=== PATIENT | female | born 1940 | race Caucasian/White ===

== ENCOUNTER 2017-05-26 07:24 | Outpatient (CLI) | payer MEDICARE, BC ==
[2017-05-26] MEDS ORDERED: Iopamidol 370 76% 100 ML VIAL ONE (09:00)
--- NOTE | 2017-05-26 10:09 | CT ---
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 COMPARISON: None. CONTRAST: 100 cc of Isovue 370. FINDINGS: CHEST: There are enlarged axillary lymph nodes. One of the largest is seen measuring 1.3 cm within the lef t axilla on image 13 of series 3. There is a mildly prominent pretracheal lymph node measuring 7 mm. No pathologically enlarged media stinal or hilar lymph node is evident. There is a 4.5 mm pulmonary nodule within the left lower lobe. There is mild bibasilar atelectasis. ABDOMEN: There are numerous enlarged lymph nodes within the upper abdomen. One of the largest is seen within the periportal region measuring 1.4 cm on image 53 of series 3. Enlarged lymph nodes are seen with in the gastrohepatic, peripancreatic, periportal, portocaval, and retroperitoneal locations. The spleen is mildly enlarged measuring up to 13 cm. There is a small subcapsular fluid collection seen along the lateral border of the spleen, which is nonspecific. There are small renal hypodensities bilaterally likely reflective of cysts. No hydronephrosis is ev ident. There is a 2.6 mm stone within the upper pole of the right kidney. The liver, pancreas, and adrenal glands are normal-appearing. There is a small splenule anterior to the inferior pole of the spleen. PELVIS: There are numerous enlarged lymph nodes within the pelvis along the iliac chains. One of the larges t adjacent to the left common iliac vessel measures 2.4 cm. There is an enlarged lymph node seen ad jacent to the left external iliac measuring 2.6 cm on image 99 of series 3. There is a fibroid uter us. The bladder, rectum, and perirectal soft tissues are unremarkable. There is a moderate amount of retained stool within the colon. OSSEOUS STRUCTURES: There is postsurgical change consistent with an L4-L5 posterior lateral interbody fusion. There is scattered degenerative osteoarthritic change. There is some instrumentation involving the lower cer vical spine that projects beyond the field of view. There is levoscoliosis of the lumbar spine. IMPRESSION: 1. Enlarged lymph nodes seen within the axillary region, upper abdomen, retroperitoneum, and pelvis consistent with patient's history of chronic lymphocytic leukemia. 2. Splenomegaly. There is a small subcapsular fluid collection seen along the lateral margin of th e spleen which is nonspecific and may reflect a small subcapsular splenic effusion or remote subcaps ular hematoma. No hyperdense fluid collection or active extravasation is grossly evident. 3. Renal hypodensity too small to characterize but statistically likely reflective of cyst. 4. Right nephrolithiasis. 5. A 4.5 mm left lower lobe pulmonary nodule. 6. Fibroid uterus. 7. Postsurgical change of the lower cervical spine and lumbar spine. POS: [facility]
== END 2017-05-26 07:25 | disposition home or self-care (01) ==
LOC: SCSCT 07:24
PROVIDERS: ATTEND Internal Medicine Hematology & Oncology
DX: C91.10 Chronic lymphocytic leukemia of B-cell type not having achieved remission (principal); N20.0 Calculus of kidney; D25.9 Leiomyoma of uterus, unspecified; R91.1 Solitary pulmonary nodule; R16.1 Splenomegaly, not elsewhere classified; Z98.890 Other specified postprocedural states
CPT/HCPCS: 71260; 74177

== ENCOUNTER 2017-09-26 16:53 | Emergency (ER) | payer MEDICARE, BC ==
--- NOTE | 2017-09-26 17:56 | CT ---
CT OF BRAIN PERFORMED WITHOUT CONTRAST ENHANCEMENT: 09/26/17 HISTORY: Fall. Generalized ventricular and sulcal prominence. There is no signs of intracerebral hemorrhage or extra-axial fluid collections. Right frontal scalp hematoma is noted. The underlying sinuses are jake ar and there is no signs of fracture. IMPRESSION: No acute intracranial abnormalities. POS: [facility]
== END 2017-09-26 18:04 | disposition home or self-care (01) ==
LOC: SCSER 16:53
DX: S09.90XA Unspecified injury of head, initial encounter (principal); I10 Essential (primary) hypertension; M19.90 Unspecified osteoarthritis, unspecified site; Z79.899 Other long term (current) drug therapy; W01.10XA Fall on same level from slipping, tripping and stumbling with subsequent striking against unspecified object, initial encounter
CPT/HCPCS: 70450

== ENCOUNTER 2018-05-20 11:13 | Outpatient (CLI) | payer MEDICARE, BC | END 2018-05-20 11:14 | disposition home or self-care (01) | LOC: BICMAMMO 11:13 | PROVIDERS: ATTEND Internal Medicine | DX: Z12.31 Encounter for screening mammogram for malignant neoplasm of breast (principal) | CPT/HCPCS: 77063; 77067 ==

== ENCOUNTER 2019-01-26 07:27 | Outpatient (CLI) | payer MEDICARE, BC ==
--- NOTE | 2019-01-26 08:39 | CT ---
EXAM: CT ABDOMEN AND PELVIS HISTORY: Chronic lymphocytic B-cell lymphoma. COMPARISON: 03/19/2016. Procedure: Multiple contiguous axial images were obtained and a CT of the abdomen and pelvis with IV contrast. C oronal reformats were performed. FINDINGS: Lower Chest: Consolidation in the medial segment of the middle lobe may be due to atelectasis. Vessels: Normal caliber aorta. No periaortic fat stranding. Heart: Normal size. No significant pericardial fluid. Abdomen: Portal vein:Patent Gallbladder: No calcified gallstones. Normal caliber wall. Liver: within normal limits. Pancreas: within normal limits. Spleen: within normal limits. Small amount of perisplenic fluid. Adrenals: within normal limits. Kidneys: within normal limits. Peritoneum: No ascites or free air, no fluid collection. Bowel: Normal caliber. Mesentery and Retroperitoneum: Enlarged gastrohepatic lymph nodes measuring 0.6 x 1.2 and 1.5 x 0.8 c m. Enlarged periportal lymph node measuring 1.3 x 2.0 cm. Enlarged complex necrotic periportal lymph node measuring 1.6 x 1.1 cm. Multiple enlarged periaortic and aortocaval lymph nodes. Enlarged precaval lymph node measures 1.7 x 1.4 cm. Enlarged left periaortic lymph node measures 2.5 x 2.7 cm. Previously, right external iliac lymph nodes measure 0.9 x 2.3 and 3.6 x 1.7 cm. Left external il iac lymph nodes previously measured 3.5 x 1.2 and 2.4 x 4.7 cm. Largest retroperitoneal lymph node was left periaortic in location, measuring 1.9 x 2.7 cm. Abdominal Wall: within normal limits. Pelvis: Reproductive Organs: Grossly unremarkable adnexal structures. Calcification in the uterine myometrium , likely due to a calcified leiomyoma. Pelvis: Enlarged right external iliac lymph nodes measuring 2.5 x 4.4 cm and 2.0 x 2.0 cm. Enlarged l eft external iliac lymph nodes measuring 3.7 x 1.8 cm and 3.1 x 1.4 cm. Bladder: within normal limits. Bones: within normal limits. IMPRESSION: Extensive lymphadenopathy involving the abdomen and pelvis as described above. The degree of lymphade nopathy has significantly progressed Transcribed Date/Time: 01/26/2019 9:30 AM
[2019-01-26] MEDS ORDERED: Iopamidol 370 76% 100 ML VIAL ONE (09:11)
== END 2019-01-26 07:28 | disposition home or self-care (01) ==
LOC: SCSCT 07:27
PROVIDERS: ATTEND Internal Medicine Hematology & Oncology
DX: C91.10 Chronic lymphocytic leukemia of B-cell type not having achieved remission (principal); R59.0 Localized enlarged lymph nodes
CPT/HCPCS: 74177; 82565

== ENCOUNTER 2019-05-27 09:14 | Outpatient (CLI) | payer MEDICARE, BC ==
--- NOTE | 2019-05-27 13:54 | MMO ---
Bilateral MAMMO Bilat Screen [facility]. CLINICAL HISTORY: Patient is 79 years old and is seen for screening. The patient has the following family history of breast cancer: aunt. The patient has a history of lymphoma at age 75. VIEWS: The views performed were: bilateral craniocaudal with tomosynthesis and bilateral mediolateral oblique with tomosynthesis. FILMS COMPARED: The present examination has been compared to prior imaging studies performed at [facility] on 05/15/2015, 05/16/2016, 05/19/2017 and 05/20/2018. This study has been interpreted with the assistance of computer-aided detection. MAMMOGRAM FINDINGS: There are scattered fibroglandular densities. Bilateral axillary lymphadenopathy consistent with lymphoma is stable. There are no suspicious masses, suspicious calcifications, or new areas of architectural distortion. IMPRESSION: THERE IS NO MAMMOGRAPHIC EVIDENCE OF MALIGNANCY. A ROUTINE FOLLOW-UP MAMMOGRAM IN 1 YEAR IS RECOMMENDED. THE RESULTS OF THIS EXAM WERE SENT TO THE PATIENT. ACR BI-RADS Category 2 - Benign finding MAMMOGRAPHY NOTE: 1. A negative mammogram report should not delay a biopsy if a dominant of clinically suspicious mass is present. 2. Approximately 10% to 15% of breast cancers are not detected by mammography. 3. Adenosis and dense breasts may obscure an underlying neoplasm. Reported by: STEVE PRUITT MD Electonically Signed: [id number]
== END 2019-05-27 09:15 | disposition home or self-care (01) ==
LOC: BICMAMMO 09:14
PROVIDERS: ATTEND Internal Medicine
DX: Z12.31 Encounter for screening mammogram for malignant neoplasm of breast (principal); Z80.3 Family history of malignant neoplasm of breast; Z85.72 Personal history of non-Hodgkin lymphomas
CPT/HCPCS: 77063; 77067

== ENCOUNTER 2019-07-23 07:31 | Outpatient (CLI) | payer MEDICARE, BC ==
--- NOTE | 2019-07-23 10:54 | CT ---
CT ABDOMEN AND PELVIS WITH ORAL AND IV CONTRAST: HISTORY: Right lower quadrant pain. Chronic lymphocytic leukemia of B cell type, not having achieved remission . Small cell B cell lymphoma, intra-abdominal lymph nodes. COMPARISON: 01/26/2019 FINDINGS: Consolidation/ atelectatic change in the medial segment of the right middle lobe is again seen. No pl eural effusions are seen. Mild splenomegaly with a small amount of perisplenic fluid is again seen. T he liver, pancreas and adrenal glands are unremarkable. There is a tiny nonobstructing right renal ca lculus. Small low densities in the kidneys are likely cysts. Abdominal, pelvic and inguinofemoral lymphadenopathy is essentially stable. No free air or ascites is seen. The small bowel loops are not abnormally dilated. Calcified uterine fibroid is again seen. The re are postop changes in the lower lumbar spine. An abnormal appendix is not seen. IMPRESSION: 1. No significant interval change since 01/26/2019. POS: [facility]
== END 2019-07-23 07:32 | disposition home or self-care (01) ==
LOC: SCSCT 07:31
PROVIDERS: ATTEND Internal Medicine Hematology & Oncology
DX: C91.10 Chronic lymphocytic leukemia of B-cell type not having achieved remission (principal)
CPT/HCPCS: 74177

== ENCOUNTER → 2020-01-25 | Outpatient (CLI) | payer MEDICARE, OTHER | LOC: LAB 14:40 | PROVIDERS: ATTEND Specialist | DX: Z01.812 Encounter for preprocedural laboratory examination (principal); Z11.59 Encounter for screening for other viral diseases | CPT/HCPCS: 87635; U0003 ==

== ENCOUNTER 2020-01-27 07:35 | Outpatient (CLI) | payer MEDICARE, BC ==
--- NOTE | 2020-01-27 08:56 | RAD ---
Esophagram HISTORY: Dysphagia. FINDINGS: Air contrast and single column barium evaluation shows a very small sliding hiatal hernia. A small amount of gastroesophageal reflux was demonstrated at fluoroscopy. No focal esophageal lesions. A 12 mm barium tablet traversed the esophagus without holdup. There was marked decrease in primary and secondary peristalsis. Prominent non-propulsive, tertiary ty pe contractions are seen present throughout the esophagus. IMPRESSION : Small sliding hiatal hernia with gastroesophageal reflux. Severe presbyesophagus. No evidence of obstruction.
== END 2020-01-27 07:36 | disposition home or self-care (01) ==
LOC: RAD 07:35
PROVIDERS: ATTEND Specialist
DX: R13.10 Dysphagia, unspecified (principal); K44.9 Diaphragmatic hernia without obstruction or gangrene; K21.9 Gastro-esophageal reflux disease without esophagitis; K22.8 Other specified diseases of esophagus
CPT/HCPCS: 74220

== ENCOUNTER 2020-07-24 13:03 | Outpatient (CLI) | payer MEDICARE, BC ==
--- NOTE | 2020-07-24 13:55 | MMO ---
Bilateral MAMMO Bilat Screen [facility]. CLINICAL HISTORY: Patient is 80 years old and is seen for screening. The patient has the following family history of breast cancer: maternal aunt, malignant (generic). The patient has a history of lymphoma at age 75. VIEWS: The views performed were: bilateral craniocaudal with tomosynthesis and bilateral mediolateral oblique with tomosynthesis. FILMS COMPARED: The present examination has been compared to prior imaging studies performed at [facility] on 05/16/2016, 05/19/2017, 05/20/2018 and 05/27/2019. This study has been interpreted with the assistance of computer-aided detection. MAMMOGRAM FINDINGS: There are scattered fibroglandular densities. Bilateral axillary lymphadenopathy consistent with lymphoma is stable. Benign calcifications are noted bilaterally. There are no suspicious masses, suspicious calcifications, or new areas of architectural distortion. IMPRESSION: THERE IS NO MAMMOGRAPHIC EVIDENCE OF MALIGNANCY. A ROUTINE FOLLOW-UP MAMMOGRAM IN 1 YEAR IS RECOMMENDED. THE RESULTS OF THIS EXAM WERE SENT TO THE PATIENT. ACR BI-RADS Category 2 - Benign finding MAMMOGRAPHY NOTE: 1. A negative mammogram report should not delay a biopsy if a dominant of clinically suspicious mass is present. 2. Approximately 10% to 15% of breast cancers are not detected by mammography. 3. Adenosis and dense breasts may obscure an underlying neoplasm. Reported by: STEVE PRUITT MD Electonically Signed: [id number]
== END 2020-07-24 13:04 | disposition home or self-care (01) ==
LOC: BICMAMMO 13:03
PROVIDERS: ATTEND Internal Medicine
DX: Z12.31 Encounter for screening mammogram for malignant neoplasm of breast (principal); Z80.3 Family history of malignant neoplasm of breast; Z85.72 Personal history of non-Hodgkin lymphomas
CPT/HCPCS: 77063; 77067

== ENCOUNTER 2023-06-24 09:53 | Outpatient (CLI) | payer MEDICARE, BC | END 2023-06-24 09:54 | disposition home or self-care (01) | LOC: BICMAMMO 09:53 | PROVIDERS: ATTEND Internal Medicine | DX: Z12.31 Encounter for screening mammogram for malignant neoplasm of breast (principal); Z80.3 Family history of malignant neoplasm of breast; Z85.72 Personal history of non-Hodgkin lymphomas | CPT/HCPCS: 77063; 77067 ==